=== PATIENT | male | born 1965 | race Caucasian/White ===

== ENCOUNTER → 2016-11-05 | Outpatient (CLI) | payer OTHER | LOC: RAD 11:07 | DX: M54.5 Low back pain (principal); M47.816 Spondylosis without myelopathy or radiculopathy, lumbar region; Z88.8 Allergy status to other drugs, medicaments and biological substances | CPT/HCPCS: 72110 ==

== ENCOUNTER → 2016-12-04 | Outpatient (CLI) | payer OTHER | LOC: CT 11:22 | DX: J90 Pleural effusion, not elsewhere classified (principal); N20.0 Calculus of kidney | CPT/HCPCS: 71250 ==

== ENCOUNTER → 2021-10-20 | Outpatient (CLI) | payer OTHER ==
[~2021-10-20] MED LIST: IBUPROFEN600 MG PO
== END ==
LOC: EXRD 08:42
DX: L57.0 Actinic keratosis (principal)
CPT/HCPCS: 76700